=== PATIENT | female | born 1955 | race African-American/Black ===

== ENCOUNTER → 2016-10-16 | Outpatient (CLI) | payer OTHER, BC ==
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
== END | disposition home or self-care (01) ==
LOC: MRI 07:42 → MERGE 08:15
PROVIDERS: ATTEND Physician Assistant Surgical
DX: M54.16 Radiculopathy, lumbar region (principal); M48.07 Spinal stenosis, lumbosacral region; M12.88 Other specific arthropathies, not elsewhere classified, other specified site
CPT/HCPCS: 72148

== ENCOUNTER → 2020-04-25 | Outpatient (CLI) | payer OTHER ==
--- NOTE | 2020-04-25 15:20 | RAD ---
3 views lumbar spine without comparison for back pain, disability determination. FINDINGS: There is no fracture or acute osseous abnormality identified. There is grade 1 anterolisthesis of L4 on L5, with facet arthrosis at L3-4, L4-5, and L5-S1. Bulky bridging anterior osteophytes are seen at several levels. There is mild narrowing of the L4-5 and L5-S1 intervertebral disc spaces. There is a 12 mm calcification in the left paraspinal soft tissues to may be at the left ureteropelvic junction. IMPRESSION: 1. Multilevel degenerative changes as described including grade 1 anterolisthesis of L4 on L5. 2. 12 mm left paraspinal soft tissue calculus which may be related to nephrolithiasis at the ureteropelvic junction. Electronically signed by: Cesar Marinelli MD (04/25/2020 3:14 PM) [id number]
== END ==
LOC: RAD 12:55
PROVIDERS: ATTEND Anesthesiology Pain Medicine
DX: M47.817 Spondylosis without myelopathy or radiculopathy, lumbosacral region (principal); M43.16 Spondylolisthesis, lumbar region; M48.07 Spinal stenosis, lumbosacral region
CPT/HCPCS: 72100